=== PATIENT | male | born 1950 | race Caucasian/White ===

== ENCOUNTER 2021-04-10 23:07 | Inpatient (IN) | payer MEDICARE, OTHER ==
[~2021-04-10] VITALS: Ht 185.4 cm; Wt 102.5 kg
--- NOTE | 2021-04-10 23:10 | NUR ---
TO ER BED EMMANUEL FROM [facility] FOR MEDICAL CLEARANCE FOR [facility] ADMISSION. PT ON 5150 HOLD. PER REPORT PT WAS AGGRESSIVE TOWARDS STAFF. PT AAOX4 NO ACUTE DISTRESS NOTED, RESP EVEN AND UNLABORED. PT CALM AND COOPERATIEV AT THIS TIME. 1:1 SITTER AT BEDSIDE FOR SAFETY.
--- NOTE | 2021-04-10 23:50 | NUR ---
BLOOD DRAWN BY BUILDING EQUIPMENT INSPECTOR.
[2021-04-10 23:58] LABS: BASOPHILS # (AUTO) 0.1 K/uL (0.0-0.2); EOSINOPHILS % (AUTO) 1.9 % (0.0-6.0); HEMATOCRIT 40 % (39-51); HEMOGLOBIN 13.6 g/dL (13.5-17.5); LYMPHOCYTES # (AUTO) 2.8 K/uL (0.8-4.8); LYMPHOCYTES % (AUTO) 25.3 % (20.0-44.0); MEAN CORPUSCULAR HGB CONC 34 g/dl (31.0-36.0); MEAN CORPUSCULAR VOLUME 96 fL (80-96); MONOCYTES # (AUTO) 0.9 K/uL (0.1-1.30); MONOCYTES % (AUTO) 8.1 % (2.0-12.0); NEUTROPHILS # (AUTO) 6.9 K/uL (1.8-8.9); NEUTROPHILS % (AUTO) 63.7 % (43.0-81.0); PLATELET COUNT (AUTO) 226 K/uL (150-450); RED BLOOD CELL COUNT(AUTO) 4.21 MIL/uL (4.5-6.0); WHITE BLOOD COUNT (AUTO) 10.9 K/uL (4.3-11.0)
[2021-04-11 00:14] LABS: CALCIUM, SERUM 9.2 mg/dL (8.5-10.1); CARBON DIOXIDE 26 mmol/L (21-32); CHLORIDE 105 mmol/L (98-107); CREATININE 0.7 mg/dL (0.6-1.3); GLUCOSE 100 mg/dL (74-106); SODIUM SERUM 142 mmol/L (136-145); UREA NITROGEN, BLOOD 26 mg/dL (7-18)
--- NOTE | 2021-04-11 00:16 | NUR ---
PT RESTING QUIETLY, NO ACUTE DISTRESS NOTED, RESP EVEN AND UNLABORED. CALL LIGHT WITHIN REACH. 1:1 SITTER AT BEDSIDE FOR SAFETY. WILL CONTINUE TO MONITOR PT.
[2021-04-11 00:21] LABS: ALANINE AMINOTRANSFERASE 31 U/L (12-78); ALBUMIN 3.6 g/dL (3.4-5.0); ALKALINE PHOSPHATASE 64 U/L (46-116); ASPARTATE AMINOTRANSFERASE 24 U/L (15-37); BILIRUBIN,DIRECT 0.1 mg/dL (0.0-0.2); BILIRUBIN,TOTAL 0.2 mg/dL (0.2-1.0); TOTAL PROTEIN, SERUM 7.6 g/dL (6.4-8.2)
[2021-04-11 00:22] LABS: ACETAMINOPHEN 0 ug/ml (10-30); ALCOHOL, BLOOD < 3 mg/dL (0-0)
[2021-04-11 00:27] LABS: BILIRUBIN,URINE Negative (NEGATIVE); COLOR,URINE YELLOW (YELLOW); LEUKOCYTE ESTERASE ,URINE Negative (NEGATIVE); NITRITE, URINE Negative (NEGATIVE); PH,URINE 5.5 (5.0-8.0); PROTEIN,URINE Negative (NEGATIVE); UGLUCOSE Negative (NEGATIVE); UROBILINOGEN,URINE 0.2 EU/dL (0.2)
[2021-04-11] MEDS ORDERED: AMLO-212 PO (00:31)
[2021-04-11] MEDS ORDERED: MIRT-90 PO (00:31)
[2021-04-11] MEDS ORDERED: HYDR25TA4 PO (00:31)
[2021-04-11] MEDS ORDERED: ATOR80TA PO (00:31)
[2021-04-11] MEDS ORDERED: METO25TA6 PO (00:31)
[2021-04-11] MEDS ORDERED: TRAZ-182 PO (00:31)
[2021-04-11] MEDS ORDERED: LOSA50TA39 PO (00:31)
[2021-04-11] MEDS ORDERED: ASPI-1420 PO (00:31)
--- NOTE | 2021-04-11 00:57 | NUR ---
REPORT GIVEN TO MIRIAM MARRERO FOR MICHELLE.
[2021-04-11 01:07] LABS: BACTERIA,URINE None seen /HPF (None Seen); RBC,URINE 0-2 /HPF (0-2); SQUAMOUS EPITHELIAL CELL,UR Few /HPF (None Seen); WBC,URINE 0-2 /HPF (0-3)
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
[2021-04-11 01:22] VITALS: BP 142/78
--- NOTE | 2021-04-11 01:22 | NUR ---
PATIENT TAKEN UP TO ASSIGNED ROOM FOR MICHELLE.
[2021-04-11] MEDS ORDERED: CHOL100043 PO (01:48)
[2021-04-11] MEDS ORDERED: LORAZEPAM 0.5 MG TABLET PO PRN (02:00)
[2021-04-11] MEDS ORDERED: ACETAMINOPHEN 325 MG TABLET PO PRN (02:00)
[2021-04-11] MEDS ORDERED: BLOOD SUGAR DIAGNOSTIC 1 EACH STRIP IN ONE (02:00)
[2021-04-11] MEDS ORDERED: MAG HYDROX/AL HYDROX/SIMETH 30 ML UDC PO PRN (02:00)
[2021-04-11] MEDS ORDERED: MAGNESIUM HYDROXIDE 30 ML UDC PO PRN (02:00)
[2021-04-11] MEDS: TEMAZEPAM 7.5 MG CAPSULE PO PRN (02:22)
--- NOTE | 2021-04-11 02:22 | NUR ---
GPS RN NOTE, PATIENT HAS A COMPLAINT OF NOT BEING ABLE TO SLEEP AND IS REQUESTING RESTORIL AT THIS TIME. PATIENT VITAL SIGNS ARE STABLE. GAVE RESTORIL 7.5MG PO QHS PRN ORDERED. WILL REASSESS FOR INSOMNIA AND I WILL CONTINUE TO MONITOR THIS PATIENT WITH THE HELP OF STAFF.
[2021-04-11 08:00] VITALS: BP 105/58
[2021-04-11] MEDS: NICOTINE PATCH (21MG) 21 MG PATCH.TD24 TD SCH (08:34)
[2021-04-11 16:00] VITALS: BP 124/77
[2021-04-11] MEDS: LOSARTAN POTASSIUM 50 MG TABLET PO SCH (17:00)
[2021-04-11] MEDS: AMLODIPINE BESYLATE 5 MG TABLET PO SCH (17:00)
[2021-04-11] MEDS: METOPROLOL TARTRATE 25 MG TABLET PO SCH (17:00)
--- NOTE | 2021-04-11 17:16 | NUR ---
GPS/RN PT REFUSED TO TAKE BP MEDS AT THIS TIME BUT AGREED TO TAKE SOME IF BP GO UP AT 8PM. WILL ENDORSE TO RIVET TOSSER NURSE ACCORDINGLY
[2021-04-11 20:05] VITALS: BP_SYST 134; BP_SYST 136; BP_DIAS 84
--- NOTE | 2021-04-11 20:05 | NUR ---
GPS RN NOTE RECEIVED PATIENT RESTING IN BED, A/O X3 BUT NOTED TO HAVE EPISODES OF REPETITIVE QUESTIONS EVEN AFTER ALL THE QUESTIONS WERE ANSWERED, VSS. EATING WELL, NO ACUTE DISTRESS NOTED. NO C/O PAIN REPORTED AT THIS TIME. PATIENT NOTED TO BE ANXIOUS, RESTLESS, EASILY IRRITABLE, ASKING QUESTIONS REPETITIVELY. VERY NEEDY, DEMANDING, DISHEVELED, NON REDIRECTABLE AT TIMES. UNABLE TO AMBULATE, WHEELCHAIR AT BED SIDE, PER PATIENT HE CAN TRANSFER FROM BED TO CHAIR & CHAIR TO BED INDEPENDENTLY. PT. HAD SNACK & TOLERATED WELL. ALL NEEDS ATTENDED AND ANTICIPATED. BED IN LOW LOCKED POSITION. WILL CONTINUE MONITORING Q15MIN FOR SAFETY, MOOD AND BEHAVIOR.
[2021-04-11] MEDS: MIRTAZAPINE 15 MG TABLET PO SCH (21:48)
[2021-04-12 07:04] LABS: BASOPHILS # (AUTO) 0.1 K/uL (0.0-0.2); BASOPHILS % (AUTO) 0.6 % (0.0-2.0); EOSINOPHILS % (AUTO) 3.1 % (0.0-6.0); HEMATOCRIT 39 % (39-51); HEMOGLOBIN 13.1 g/dL (13.5-17.5); LYMPHOCYTES # (AUTO) 2.6 K/uL (0.8-4.8); LYMPHOCYTES % (AUTO) 31.5 % (20.0-44.0); MEAN CORPUSCULAR HGB CONC 33 g/dl (31.0-36.0); MEAN CORPUSCULAR VOLUME 97 fL (80-96); MONOCYTES # (AUTO) 0.9 K/uL (0.1-1.30); MONOCYTES % (AUTO) 10.8 % (2.0-12.0); NEUTROPHILS # (AUTO) 4.5 K/uL (1.8-8.9); PLATELET COUNT (AUTO) 205 K/uL (150-450); RED BLOOD CELL COUNT(AUTO) 4.06 MIL/uL (4.5-6.0); WHITE BLOOD COUNT (AUTO) 8.4 K/uL (4.3-11.0)
[2021-04-12 07:48] LABS: CALCIUM, SERUM 8.9 mg/dL (8.5-10.1); CREATININE 0.7 mg/dL (0.6-1.3)
[2021-04-12 08:00] VITALS: BP 109/69
[2021-04-12] MEDS: METOPROLOL TARTRATE 25 MG TABLET PO SCH ×2 (08:05→17:17)
[2021-04-12] MEDS: LOSARTAN POTASSIUM 50 MG TABLET PO SCH ×2 (08:05→17:16)
[2021-04-12] MEDS: AMLODIPINE BESYLATE 5 MG TABLET PO SCH ×2 (08:06→17:17)
[2021-04-12] MEDS: HYDROCHLOROTHIAZIDE 25 MG TABLET PO SCH (08:06)
[2021-04-12] MEDS: NICOTINE PATCH (21MG) 21 MG PATCH.TD24 TD SCH (08:17)
[2021-04-12] MEDS: ASPIRIN EC 81 MG TABLET.DR PO SCH (08:17)
[2021-04-12 16:00] VITALS: BP 130/73
[2021-04-12 20:23] VITALS: BP 108/74
[2021-04-12] MEDS: ATORVASTATIN 40 MG TABLET PO SCH (21:31)
[2021-04-12] MEDS: MIRTAZAPINE 15 MG TABLET PO SCH (21:31)
[2021-04-13 08:00] VITALS: BP 138/90
[2021-04-13] MEDS: ASPIRIN EC 81 MG TABLET.DR PO SCH (08:03)
[2021-04-13] MEDS: HYDROCHLOROTHIAZIDE 25 MG TABLET PO SCH (08:03)
[2021-04-13] MEDS: NICOTINE PATCH (21MG) 21 MG PATCH.TD24 TD SCH (08:05)
[2021-04-13] MEDS: LOSARTAN POTASSIUM 50 MG TABLET PO SCH ×2 (08:05→16:43)
[2021-04-13] MEDS: AMLODIPINE BESYLATE 5 MG TABLET PO SCH ×2 (08:06→16:44)
[2021-04-13] MEDS: METOPROLOL TARTRATE 25 MG TABLET PO SCH ×2 (08:06→16:43)
--- NOTE | 2021-04-13 09:00 | NUR ---
RN NOTE- PT ALERT ORIENTED X FOUR, INTERACTIVE APPROPRIATE DENIES SI HI AH VH MED COMPLIANT
[2021-04-13 16:00] VITALS: BP 112/74
[2021-04-13 20:00] VITALS: BP 116/68
[2021-04-13] MEDS: ATORVASTATIN 40 MG TABLET PO SCH (21:26)
[2021-04-13] MEDS: MIRTAZAPINE 15 MG TABLET PO SCH (21:26)
--- NOTE | 2021-04-14 00:52 | NUR ---
GPS RN NOTES: PATIENT REQUESTED FOR SLEEP MEDICATION. RESTORIL 7.5MG 1TAB GIVEN PO PRN ORDERED AT 0050. WILL CONTINUE TO MONITOR.
--- NOTE | 2021-04-14 06:35 | NUR ---
GPS RN CLOSING NOTES: PATIENT IS CURRENTLY SLEEPING. PATIENT SLEPT 6HRS THIS SHIFT. PATIENT WAS COMPLIANT WITH MEDICATION THIS SHIFT. NO S/S OF DISTRESS. RESPIRATION EVEN AND UNLABORED WITH EQUAL RISE AND FALL OF THE CHEST ON ROOM AIR. ALL PATIENT CARE NEEDS HAVE BEEN MET ANTICIPATED. BED IN LOWEST POSITION AND LOCKED, WITH SIDE RAILS UP X2 FOR SAFETY. WILL CONTINUE TO MONITOR FOR SAFETY, MOOD AND BEHAVIOR AND ENDORSE TO AM SHIFT.
[2021-04-14 08:00] VITALS: BP 117/68
[2021-04-14] MEDS: ASPIRIN EC 81 MG TABLET.DR PO SCH (08:00)
[2021-04-14] MEDS: NICOTINE PATCH (21MG) 21 MG PATCH.TD24 TD SCH (08:00)
[2021-04-14] MEDS: LOSARTAN POTASSIUM 50 MG TABLET PO SCH ×2 (08:01→17:00)
[2021-04-14] MEDS: METOPROLOL TARTRATE 25 MG TABLET PO SCH ×2 (08:01→17:00)
[2021-04-14] MEDS: HYDROCHLOROTHIAZIDE 25 MG TABLET PO SCH (08:01)
[2021-04-14] MEDS: AMLODIPINE BESYLATE 5 MG TABLET PO SCH ×2 (08:02→17:00)
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
--- NOTE | 2021-04-14 09:00 | NUR ---
RN NOTE- PT ALERT ORIENTED TO PERSON PLACE TIME PURPOSE, INTERACTIVE APPROPRIATE DENIES SI HI [facility] MED COMPLIANT
--- NOTE | 2021-04-14 11:05 | NUR ---
Family Contact: SW called the pts son, Luca Gonzales JR ([phone]), and informed him about the pts current condition and inquired about his living situation. Pts son stated that the pt lives at [facility] and he stated that he would like it if the pt can return so he asked the SW to contact the Director of the facility.
--- NOTE | 2021-04-14 11:15 | NUR ---
Facility Contact: Aidan Alberto ([phone]), director at [facility], the pt can return to the facility if stable but it is not for sure at this time. SW stated that she can keep her updated on the pts condition and she can come and evaluate the pt as well closer to discharge.
--- NOTE | 2021-04-14 11:22 | NUR ---
Initial Discharge Plan: Pt currently resides at [facility] located at [address] [place] [address]; . Per Dolly ([phone]), director at [facility], the pt can return if stable but it is not for sure at this time. Per pts son, Luca ([phone]), he would like the pt to return. SW will work with the pt and the MD regarding appropriate discharge planning. SW will form a safe and proper discharge.
[2021-04-14 16:00] VITALS: BP 118/76
--- NOTE | 2021-04-14 19:31 | NUR ---
nurses opening notes: Pt is in his room awake in bed when received from the morning shift, alert and awake with no distress as noted.
[2021-04-14 20:00] VITALS: BP 116/71
[2021-04-14] MEDS: MIRTAZAPINE 15 MG TABLET PO SCH (21:27)
[2021-04-14] MEDS: TEMAZEPAM 7.5 MG CAPSULE PO PRN (21:27)
[2021-04-14] MEDS: ATORVASTATIN 40 MG TABLET PO SCH (21:28)
--- NOTE | 2021-04-15 06:02 | NUR ---
GPS RN CLOSING NOTES: PATIENT IS SLEEPING COMFORTABLY IN BED. NO S/S OF DISTRESS. RESPIRATION EVEN AND UNLABORED WITH EQUAL RISE AND FALL OF THE CHEST ON ROOM AIR. ALL PATIENT CARE NEEDS HAVE BEEN MET ANTICIPATED. WILL CONTINUE TO MONITOR FOR SAFETY, MOOD AND BEHAVIOR AND ENDORSE TO AM SHIFT.
[2021-04-15 08:00] VITALS: BP 102/66
[2021-04-15] MEDS: ASPIRIN EC 81 MG TABLET.DR PO SCH (08:41)
[2021-04-15] MEDS: LOSARTAN POTASSIUM 50 MG TABLET PO SCH ×2 (08:41→17:00)
[2021-04-15] MEDS: NICOTINE PATCH (21MG) 21 MG PATCH.TD24 TD SCH (08:41)
[2021-04-15] MEDS: AMLODIPINE BESYLATE 5 MG TABLET PO SCH ×2 (08:42→17:01)
[2021-04-15] MEDS: METOPROLOL TARTRATE 25 MG TABLET PO SCH ×2 (08:42→16:59)
[2021-04-15] MEDS: HYDROCHLOROTHIAZIDE 25 MG TABLET PO SCH (08:42)
--- NOTE | 2021-04-15 09:00 | NUR ---
RN NOTE- PT ALERT ORIENTED PERSON PLACE TIME INTERACTIVE APPROPRIATE DENIES SI HI AH [facility] MED COMPLIANT, MINIMAL INTERACTION
--- NOTE | 2021-04-15 09:00 | NUR ---
SNF Referral: CANDIE faxed a referral to [facility] with attn to Danial to the fax number: [phone].
--- NOTE | 2021-04-15 09:05 | NUR ---
SNF Referral: CANDIE faxed a referral to [facility] to the fax number: [phone].
--- NOTE | 2021-04-15 12:31 | NUR ---
SNF Referral: SW was contacted by Danial ([phone]) at [facility]. Pt was denied placement.
--- NOTE | 2021-04-15 12:45 | NUR ---
SNF Referral: SW was contacted by CJ at [facility] ([phone]) who reports that pt was accepted for placement. CJ reports that he is awaiting contact from Medicare and will keep SW updated.
--- NOTE | 2021-04-15 14:32 | NUR ---
Probable Cause Hearing: Pts 5250 hold was upheld for grave disability.
--- NOTE | 2021-04-15 15:34 | NUR ---
RN NOTE- PT W ANXIETY RESTLESSNESS AND LABILE . ATIVAN 0.5 MG GIVEN
[2021-04-15 16:00] VITALS: BP 131/81
--- NOTE | 2021-04-15 19:35 | NUR ---
GPS RN NOTES RECEIVED SITTING ON CHAIR IN THE DINING ROOM,A/O X4,VERBALIZED NEEDS,CALM AND COOPERATIVE,ABLE TO INTER ACT WITH STAFF.RENA COMPLIANT.WILL CONTINUE TO MONITOR BEHAVIOR AND MANAGE ACCORDINGLY.
[2021-04-15 20:00] VITALS: BP 114/57
[2021-04-15 20:04] VITALS: BP 114/57
[2021-04-15] MEDS: ATORVASTATIN 40 MG TABLET PO SCH (22:14)
[2021-04-16 08:00] VITALS: BP 106/66
[2021-04-16] MEDS: LOSARTAN POTASSIUM 50 MG TABLET PO SCH ×2 (08:28→16:28)
[2021-04-16] MEDS: HYDROCHLOROTHIAZIDE 25 MG TABLET PO SCH (08:28)
[2021-04-16] MEDS: ASPIRIN EC 81 MG TABLET.DR PO SCH (08:29)
[2021-04-16] MEDS: AMLODIPINE BESYLATE 5 MG TABLET PO SCH ×2 (08:29→16:29)
[2021-04-16] MEDS: METOPROLOL TARTRATE 25 MG TABLET PO SCH ×2 (08:29→16:29)
[2021-04-16] MEDS: NICOTINE PATCH (21MG) 21 MG PATCH.TD24 TD SCH (08:30)
[2021-04-16 16:00] VITALS: BP 113/61
[2021-04-16 20:36] VITALS: BP 103/72
[2021-04-16] MEDS: ATORVASTATIN 40 MG TABLET PO SCH (21:09)
[2021-04-16] MEDS: MIRTAZAPINE 15 MG TABLET PO SCH (21:10)
[2021-04-17 08:00] VITALS: BP 100/56
[2021-04-17] MEDS: ASPIRIN EC 81 MG TABLET.DR PO SCH (08:51)
[2021-04-17] MEDS: HYDROCHLOROTHIAZIDE 25 MG TABLET PO SCH (08:58)
[2021-04-17] MEDS: LOSARTAN POTASSIUM 50 MG TABLET PO SCH ×2 (08:58→16:07)
[2021-04-17] MEDS: AMLODIPINE BESYLATE 5 MG TABLET PO SCH ×2 (08:59→16:08)
[2021-04-17] MEDS: METOPROLOL TARTRATE 25 MG TABLET PO SCH ×2 (08:59→16:07)
[2021-04-17] MEDS: NICOTINE PATCH (21MG) 21 MG PATCH.TD24 TD SCH (09:00)
[2021-04-17] MEDS: GABAPENTIN 100 MG CAPSULE PO SCH ×3 (09:47→16:07)
--- NOTE | 2021-04-17 10:49 | NUR ---
RN-NOTES PATIENT LYING IN BED INTERMITTENTLY SLEEPING,NO ACUTE DISTRESS NOTED. ENDORSED TO THE RN NURSE FOR THE CONTINUITY OF CARE .
--- NOTE | 2021-04-17 10:51 | NUR ---
RN-NOTES PATIENT LYING IN BED AWAKE,ALERT CALM,NO ACUTE DISTRESS NOTED. ENDORSED TO THE RN NURSE FOR THE CONTINUITY OF CARE . Addendum: 04/17/21 at 1054 by NEL LONG RN THE ABOVE NOTES WAS CHARTED WRONG PATIENT.
--- NOTE | 2021-04-17 11:39 | NUR ---
Point of contact: CANDIE contacted Dolly ([phone]), director at [facility] and inquired if facility will accept pt upon discharge. Per, director [facility] will send tentmaker on Tuesday04/17/2021 to evaluate pt for potential admittance to [facility].
--- NOTE | 2021-04-17 11:46 | NUR ---
Family contact: CANDIE called the pts son, Luca Gonzales JR ([phone]), and informed him about the pts current condition. CANDIE informed son that pt will be evaluated by [facility] on Tuesday04/17/2021. CANDIE informed son that pt has an alternate placement at [facility], in the case that [facility] will not accept pt. Son requested a referral be sent to another SNF closer to [place].
[2021-04-17 16:00] VITALS: BP 123/63
[2021-04-17 18:08] VITALS: BP 122/54
[2021-04-17 20:25] VITALS: BP 117/57
[2021-04-17] MEDS: MIRTAZAPINE 15 MG TABLET PO SCH (21:34)
[2021-04-17] MEDS: ATORVASTATIN 40 MG TABLET PO SCH (21:34)
[2021-04-18 08:00] VITALS: BP 112/76
[2021-04-18] MEDS: HYDROCHLOROTHIAZIDE 25 MG TABLET PO SCH (09:00)
[2021-04-18] MEDS: METOPROLOL TARTRATE 25 MG TABLET PO SCH ×2 (09:00→16:02)
[2021-04-18] MEDS: NICOTINE PATCH (21MG) 21 MG PATCH.TD24 TD SCH (09:05)
[2021-04-18] MEDS: GABAPENTIN 100 MG CAPSULE PO SCH ×3 (09:06→16:02)
[2021-04-18] MEDS: ASPIRIN EC 81 MG TABLET.DR PO SCH (09:06)
[2021-04-18] MEDS: LOSARTAN POTASSIUM 50 MG TABLET PO SCH ×2 (09:06→16:01)
[2021-04-18] MEDS: AMLODIPINE BESYLATE 5 MG TABLET PO SCH ×2 (09:07→16:02)
[2021-04-18 16:00] VITALS: BP 109/77
[2021-04-18 20:18] VITALS: BP 103/70
[2021-04-18] MEDS: MIRTAZAPINE 15 MG TABLET PO SCH (21:12)
[2021-04-18] MEDS: ATORVASTATIN 40 MG TABLET PO SCH (21:12)
[2021-04-19 08:00] VITALS: BP 90/60
[2021-04-19] MEDS: HYDROCHLOROTHIAZIDE 25 MG TABLET PO SCH (08:46)
[2021-04-19] MEDS: NICOTINE PATCH (21MG) 21 MG PATCH.TD24 TD SCH (08:46)
[2021-04-19] MEDS: AMLODIPINE BESYLATE 5 MG TABLET PO SCH ×2 (08:47→16:25)
[2021-04-19] MEDS: GABAPENTIN 100 MG CAPSULE PO SCH ×3 (08:47→16:25)
[2021-04-19] MEDS: ASPIRIN EC 81 MG TABLET.DR PO SCH (08:47)
[2021-04-19] MEDS: LOSARTAN POTASSIUM 50 MG TABLET PO SCH ×2 (08:48→16:26)
[2021-04-19] MEDS: METOPROLOL TARTRATE 25 MG TABLET PO SCH ×2 (09:13→16:25)
[2021-04-19 16:00] VITALS: BP 132/76
[2021-04-19 20:47] VITALS: BP 109/73
[2021-04-19] MEDS: MIRTAZAPINE 15 MG TABLET PO SCH (22:04)
[2021-04-19] MEDS: TEMAZEPAM 7.5 MG CAPSULE PO PRN (22:05)
[2021-04-19] MEDS: ATORVASTATIN 40 MG TABLET PO SCH (22:05)
[2021-04-20 08:00] VITALS: BP 97/56
[2021-04-20] MEDS: NICOTINE PATCH (21MG) 21 MG PATCH.TD24 TD SCH (08:02)
[2021-04-20] MEDS: ASPIRIN EC 81 MG TABLET.DR PO SCH (08:02)
[2021-04-20] MEDS: GABAPENTIN 100 MG CAPSULE PO SCH ×3 (08:02→16:17)
[2021-04-20] MEDS: HYDROCHLOROTHIAZIDE 25 MG TABLET PO SCH (08:03)
[2021-04-20] MEDS: LOSARTAN POTASSIUM 50 MG TABLET PO SCH ×2 (08:03→16:15)
[2021-04-20] MEDS: METOPROLOL TARTRATE 25 MG TABLET PO SCH ×2 (08:04→16:16)
[2021-04-20] MEDS: AMLODIPINE BESYLATE 5 MG TABLET PO SCH ×2 (08:04→16:16)
[2021-04-20 16:00] VITALS: BP 102/65
[2021-04-20] MEDS: MIRTAZAPINE 15 MG TABLET PO SCH (21:04)
[2021-04-20] MEDS: ATORVASTATIN 40 MG TABLET PO SCH (21:05)
[2021-04-21 08:00] VITALS: BP 113/59
[2021-04-21] MEDS: LOSARTAN POTASSIUM 50 MG TABLET PO SCH ×2 (08:13→17:30)
[2021-04-21] MEDS: HYDROCHLOROTHIAZIDE 25 MG TABLET PO SCH (08:13)
[2021-04-21] MEDS: AMLODIPINE BESYLATE 5 MG TABLET PO SCH ×2 (08:14→17:00)
[2021-04-21] MEDS: METOPROLOL TARTRATE 25 MG TABLET PO SCH ×2 (08:14→17:00)
[2021-04-21] MEDS: ASPIRIN EC 81 MG TABLET.DR PO SCH (08:51)
[2021-04-21] MEDS: NICOTINE PATCH (21MG) 21 MG PATCH.TD24 TD SCH (08:51)
[2021-04-21] MEDS: GABAPENTIN 100 MG CAPSULE PO SCH ×3 (08:51→17:30)
--- NOTE | 2021-04-21 13:26 | NUR ---
Point of contact: CANDIE contacted Dolly ([phone]), director at [facility] to discuss pts discharge. Director did not answer, CANDIE left a voicemail.
--- NOTE | 2021-04-21 15:20 | NUR ---
Family contact: CANDIE called the pts son, Luca Gonzales JR ([phone]) and to inform him of pts discharge for tomorrow 04/22/2021 at 2:00 pm. Pts son did not answer, SW left a voicemail informing him of the discharge. SW will follow up with pts son at a later time.
[2021-04-21 16:00] VITALS: BP 128/73
--- NOTE | 2021-04-21 18:02 | NUR ---
RN NOTES PATIENT RESTING IN BED, A/O X3, ON R/A. SAFETY PRECAUTIONS IN PLACE.
[2021-04-21 20:11] VITALS: BP 123/70
[2021-04-21] MEDS: ATORVASTATIN 40 MG TABLET PO SCH (21:51)
[2021-04-21] MEDS: MIRTAZAPINE 15 MG TABLET PO SCH (21:51)
[2021-04-22] MEDS: TEMAZEPAM 7.5 MG CAPSULE PO PRN (01:44)
--- NOTE | 2021-04-22 01:44 | NUR ---
GPS RN NOTES: PATIENT REQUESTED FOR SLEEP MEDICATION. RESTORIL 7.5MG 1CAP GIVEN PO PRN ORDERED AT 0144. WILL CONTINUE TO MONITOR.
--- NOTE | 2021-04-22 06:43 | NUR ---
GPS RN CLOSING NOTES: PATIENT IS CURRENTLY SLEEPING. PATIENT SLEPT 8HRS THIS SHIFT. PATIENT WAS COMPLIANT WITH MEDICATION THIS SHIFT. NO S/S OF DISTRESS. RESPIRATION EVEN AND UNLABORED WITH EQUAL RISE AND FALL OF THE CHEST ON ROOM AIR. ALL PATIENT CARE NEEDS HAVE BEEN MET ANTICIPATED. BED IN LOWEST POSITION AND LOCKED, WITH SIDE RAILS UP X2 FOR SAFETY. WILL CONTINUE TO MONITOR FOR SAFETY, MOOD AND BEHAVIOR AND ENDORSE TO AM SHIFT.
[2021-04-22 07:10] LABS: BASOPHILS # (AUTO) 0.1 K/uL (0.0-0.2); BASOPHILS % (AUTO) 0.7 % (0.0-2.0); HEMATOCRIT 37 % (39-51); HEMOGLOBIN 12.5 g/dL (13.5-17.5); LYMPHOCYTES # (AUTO) 2.4 K/uL (0.8-4.8); LYMPHOCYTES % (AUTO) 27.5 % (20.0-44.0); MEAN CORPUSCULAR HGB CONC 34 g/dl (31.0-36.0); MEAN CORPUSCULAR VOLUME 96 fL (80-96); MONOCYTES % (AUTO) 11.7 % (2.0-12.0); NEUTROPHILS % (AUTO) 57.1 % (43.0-81.0); PLATELET COUNT (AUTO) 201 K/uL (150-450); RED BLOOD CELL COUNT(AUTO) 3.84 MIL/uL (4.5-6.0); WHITE BLOOD COUNT (AUTO) 8.7 K/uL (4.3-11.0)
[2021-04-22 08:00] VITALS: BP 116/68
[2021-04-22 08:04] LABS: CALCIUM, SERUM 8.6 mg/dL (8.5-10.1); CREATININE 0.8 mg/dL (0.6-1.3); MAGNESIUM 2.1 mg/dL (1.8-2.4); POTASSIUM 4.2 mmol/L (3.5-5.1)
[2021-04-22] MEDS: ASPIRIN EC 81 MG TABLET.DR PO SCH (08:45)
[2021-04-22] MEDS: NICOTINE PATCH (21MG) 21 MG PATCH.TD24 TD SCH (08:45)
[2021-04-22] MEDS: GABAPENTIN 100 MG CAPSULE PO SCH ×2 (08:45→12:13)
[2021-04-22] MEDS: LOSARTAN POTASSIUM 50 MG TABLET PO SCH (08:47)
[2021-04-22] MEDS: HYDROCHLOROTHIAZIDE 25 MG TABLET PO SCH (08:47)
[2021-04-22] MEDS: METOPROLOL TARTRATE 25 MG TABLET PO SCH (08:47)
[2021-04-22 08:48] VITALS: BP 116/68
[2021-04-22] MEDS: AMLODIPINE BESYLATE 5 MG TABLET PO SCH (08:48)
--- NOTE | 2021-04-22 08:55 | NUR ---
SNF Referral: CANDIE faxed a referral to [facility] with attn to Korin to the fax number: [phone].
--- NOTE | 2021-04-22 09:59 | NUR ---
Point of contact: CANDIE contacted Dolly ([phone]), director at [facility] to discuss pts discharge. Director did not answer, CANDIE left a voicemail. CANDIE will follow up with director regarding discharge.
--- NOTE | 2021-04-22 11:23 | NUR ---
Family contact: CANDIE called the pts son, Luca Gonzales JR ([phone]) and to inform him of pts discharge for today 04/22/2021 at 2:00 pm to [facility]. Pts son did not answer, SW left a voicemail informing him of the discharge to [facility]. CANDIE will follow up with pts son at a later time.
--- NOTE | 2021-04-22 11:38 | NUR ---
Family contact: CANDIE received a call from pts son, Luca Gonzales JR ([phone]) and informed him of pts discharge to [facility]. CANDIE reported to pts son that she has attempted to get in contact with Dolly at director of [facility] ([phone]) but she has not contacted CANDIE back. CANDIE informed pts brother that [facility] denied pt due to pt not paying his share of cost at [facility]. CANDIE informed pts son that pt will be discharged to [facility] @ 2pm by flor.
--- NOTE | 2021-04-22 13:56 | NUR ---
RN NOTE: REPORT CALLED TO JAMILA MARRERO AT [facility] AT [phone]
--- NOTE | 2021-04-22 14:00 | NUR ---
Updated discharge plan: Pt will be discharged to [facility] ([facility]) located at [address] [place] [id number]; ([phone]) via [facility] at 2:00 pm. Pts brotherLuca ([phone]) was notified about the discharge. Upon discharge the pt appears to be in a euthymic mood and presents with a calm affect. Pt denies suicidal and homicidal ideation as well as auditory and visual hallucinations. Pt appears to be oriented x2-3. Dr. Mckeon, located at [address] [place] [address]; . Pt will be under the care of diamond powder technician, Dr. [place], [place] [address] [facility] [address] ([phone]). SW provided pt with smoking cessation referrals. The choice of vendor form and multidisciplinary exit care form were done, printed, signed, and given to the patient.
--- NOTE | 2021-04-22 14:25 | NUR ---
FIELD LOGISTICS COORDINATOR NOTE: PT DISCHARGED TO [facility] IN STABLE CONDITION. VSS, AFEBRILE NO SOB NOTED. A+OX2-3 WITH PERIODS OF CONFUSION. PT DENIES SI/HI AND INSTRUCTED TO GO TO THE NEAREST ER OR CALL 911 IF EXPERIENCING. NO CURRENT BEHAVIORAL/AGGRESSIVE BEHAVIORS NOTED. PT COMPLIANT WITH MEDICATION ADMINISTRATION. REPORT CALLED TO JAMILA MARRERO. MEDICATIONS RECONCILED WITH DR. LIM AND DR. KEITA. PSYCHIATRIC CARE PLANS MET. MEDICAL CARE PLAN DEFERRED FOR CONTINUITY OF CARE. PT TO FOLLOW UP WITH PCP AND PSYCHIATRIST WITHIN ONE WEEK OF DISCHARGE. PT REFUSED WEEKLY SKIN PICTURES AND D/C SKIN PICTURES. VALUABLES RETURNED TO THE PATIENT. PATIENT ID BAND REMOVED. PT EDUCATED RE EXIT CARE PLAN AND VERBALIZED AGREEMENT. PT LEFT THE UNIT AT 1425 VIA GURNEY WITH EMS PRESENT IN STABLE CONDITION.
== END 2021-04-22 14:25 | DRG 885 ==
LOC: ER 23:17 → GPS 04-11 00:35
PROVIDERS: ADMIT Psychiatry & Neurology Psychosomatic Medicine; ATTEND Internal Medicine Nephrology
DX: F33.1 Major depressive disorder, recurrent, moderate (principal); I10 Essential (primary) hypertension; E78.5 Hyperlipidemia, unspecified; J44.9 Chronic obstructive pulmonary disease, unspecified; I25.10 Atherosclerotic heart disease of native coronary artery without angina pectoris; I49.9 Cardiac arrhythmia, unspecified; Z79.82 Long term (current) use of aspirin; Z79.899 Other long term (current) drug therapy; G31.84 Mild cognitive impairment of uncertain or unknown etiology; F41.9 Anxiety disorder, unspecified
CPT/HCPCS: 36415; 80048-TC; 80061-TC; 80076-TC; 81001; 83735-TC; 84100-TC; 85025-TC; 87081-TC; 97112-TC; 97530-TC; G0480